=== PATIENT | female | born 1975 | race Caucasian/White ===

== ENCOUNTER 2023-02-28 19:48 | Emergency (ER) | payer OTHER, BC ==
[~2023-02-28] VITALS: Ht 165.1 cm; Wt 79.4 kg
[2023-02-28] MEDS ORDERED: PERCOCET 5-3251 EACH PO (20:57)
[2023-02-28 22:39] VITALS: BP 129/62
== END 2023-02-28 22:30 | disposition home or self-care (01) ==
LOC: ED 19:48
DX: S82.832A Other fracture of upper and lower end of left fibula, initial encounter for closed fracture (principal); S82.392A Other fracture of lower end of left tibia, initial encounter for closed fracture; V00.218A Other ice-skates accident, initial encounter; Y93.21 Activity, ice skating; Z88.0 Allergy status to penicillin
CPT/HCPCS: 29515; 73590; 73610; 99283-25; J1170; J2405

== ENCOUNTER 2023-03-02 07:52 | Day surgery (SDC) | payer OTHER, BC ==
[~2023-03-02 07:52] MED LIST: PERCOCET 5-3251 EACH PO
[2023-03-02 08:12] VITALS: BP 121/67
[2023-03-02] MEDS ORDERED: STOOL SOFTENER100 M1 PO (08:18)
[2023-03-02 08:35] LABS: BASOPHILS 0.4 % (0-2); EOSINOPHILS 0.8 % (0-6); HEMATOCRIT 39.5 % (35.0-50.0); HEMOGLOBIN 13.3 g/dL (12.0-18.0); LYMPHOCYTES 10.8 % (24-44); MCHC 33.5 g/dl (30-36); MCV 86.5 fl (81-99); PLATELET COUNT 223 K/uL (140-440); RBC 4.57 M/ul (4.3-5.7); RDW 13.8 (10.5-15.0)
[2023-03-02 08:45] LABS: ANION GAP 13.5 (7-21); BUN/CREATININE RATIO 8.97 (6.0-28.6); CREATININE, SERUM 0.78 mg/dL (0.55-1.02); POTASSIUM 3.5 mmol/L (3.5-5.1)
--- NOTE | 2023-03-02 11:16 | NUR ---
LE 0900 UPDATED PATIENT ON SURGERY WAIT TIME. NO QUESTIONS OR CONCERNS AT THIS TIME. AT BEDSIDE. CALL LIGHT WITHIN REACH NO FUTHER NEEDS. LE 1000 UPDATED PATIENT ON SURGERY WAIT TIME. NO QUESTIONS OR CONCERNS AT THIS TIME. AT BEDSIDE. CALL LIGHT WITHIN REACH NO FUTHER NEEDS. LE 1045 PATIENT COMPLAINING OF PAIN LLE. ANOTHER PILLOW GIVEN AND ICE PACKS. OR CHARGE AND SUPPLIER RELATIONSHIP DIRECTOR AWARE. CALL LIGHT WITHIN REACH NO FUTHER NEEDS OR QUESTIONS AT THIS TIME. LE 1050 ANDREW NO[address] BED[address]IDE[address] DR[address] BROOKE SIGNED CONSENT. LE 1100 PATIENT TAKEN BACK TO THE OR. NO FUTHER NEEDS. GIVEN PAGER.
[2023-03-02] MEDS ORDERED: OXYCODONE HCL5 MG PO (12:52)
[2023-03-02] MEDS ORDERED: XARELTO10 MG PO (12:52)
--- NOTE | 2023-03-02 12:53 | NUR ---
03/02/23 1253 Sheets,Milly 1245 PT ARRIVED TO PACU ON 10L VIA MASK, PT ASLEEP AND ORAL AIRWAY IN PLACE. RESP EVEN AND UNLABORED WITH JAW THURST NEEDED OFF AND ON TO MAINTAIN AIRWAY.
[2023-03-02 14:09] VITALS: BP 94/46
--- NOTE | 2023-03-02 14:13 | NUR ---
1355 PT ARRIVED FROM PACU TO DAY SURGERY RM 5. PT DROWSY BUT AROUSABLE TO VOICE. TOOK REPORT FROM ROSELINE Manzanares RN. VITALS TAKEN. PT REPORTS NO PAIN OR NAUSEA. LOWER LEFT EXTREMITY IS PINK AND WARM TO TOUCH. CAP REFILL LESS THAN 3 SECONDS, AND PULSES STRONG. NO SENSTION IN LOWER LEFT EXTREMITY. BREATHING EQUAL AND UNLABORED. 1410 PT IS TOLERATING PO WATER INTAKE. CRACKERS, WATER, CALL LIGHT WITHIN REACH. PT AT BEDSIDE. PT AND FAMILY HAS NO FURTHER QUESTIONS AT THIS TIME.
--- NOTE | 2023-03-02 14:34 | NUR ---
1432 CALLED . TO VERIFY THAT PT WEIGHT BARING STATUS IS TOE TOUCH WITH NO BRACE OR BOOT ORDERED. MD VERIFIED ORDERS ARE CORRECT.
[2023-03-02 15:16] VITALS: BP 98/40
--- NOTE | 2023-03-02 15:26 | NUR ---
1515 PT DROWSY, BUT WAKES TO VOICE. PT TOLERATING WATER AND CRACKERS BY MOUTH WELL. PT REPORTS TOLERABLE LEVEL OF PAIN AT 1/10. PT REPORTS NO NAUSEA. VITALS TAKEN. SURGICAL DRESSING AND LOWER LEFT EXTREMITY ASSESSED. PULSES STRONG, PT HAS FEELING IN LOWER LEFT EXTREMITY.
[2023-03-02 16:22] VITALS: BP 115/57
--- NOTE | 2023-03-02 16:34 | NUR ---
1605 PT AND IN ROOM. DISCHARGE INSTRUCTIONS GONE OVER WITH PT. PT REPORTS 1/10 TOLERABLE LEVEL OF PAIN. PT REPORTS NO NAUSEA. IV DEACCESSED. PT AND HAVE NO FURTHER QUESTIONS AT THIS TIME. 1615 PT WHEELCHAIRED OUT OF DAY SURGERY VIA WHEELCHAIR TO IN CAR. CRYO CUFF GIVEN TO .
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
== END 2023-03-02 16:15 | disposition home or self-care (01) ==
LOC: DS 07:52
PROVIDERS: Nurse Anesthetist, Certified Registered; ATTEND Specialist
PROC: 3E0T3BZ Introduction of Anesthetic Agent into Peripheral Nerves and Plexi, Percutaneous Approach (ICD-10-PCS; 2023-03-02)
PROC: 0QSH04Z Reposition Left Tibia with Internal Fixation Device, Open Approach (ICD-10-PCS; principal; 2023-03-02 10:00)
DX: S82.302A Unspecified fracture of lower end of left tibia, initial encounter for closed fracture (principal); S82.832A Other fracture of upper and lower end of left fibula, initial encounter for closed fracture; W51.XXXA Accidental striking against or bumped into by another person, initial encounter; Y93.21 Activity, ice skating
CPT/HCPCS: 01480; 36415; 73590; 80048; 84703; 85025; J0690; J0735; J1100; J1790; J1885; J2001; J2250; J2405; J2704; J2765; J3010; J7121